=== PATIENT | male | born 1955 | race African-American/Black ===

== ENCOUNTER 2025-02-18 22:42 | Inpatient (IN) | payer OTHER ==
[~2025-02-18] VITALS: Ht 188 cm; Wt 100.0 kg
[2025-02-18 23:39] LABS: BASOPHILS % (AUTO) 0.2 % (0.0-2.0); EOSINOPHILS % (AUTO) 0.1 % (1.0-6.0); HEMATOCRIT 47.5 % (41-53); HEMOGLOBIN 15.5 g/dL (13.5-17.5); LYMPHOCYTES # (AUTO) 0.6 K/uL (1.0-4.8); LYMPHOCYTES % (AUTO) 3.5 % (22.0-44.0); MEAN CORPUSCULAR HEMOGLOBIN 28.8 pg (26.0-34.0); MEAN CORPUSCULAR HGB CONC 32.6 G/dL (31.0-37.0); MEAN CORPUSCULAR VOLUME 89 fL (80-100); MONOCYTES # (AUTO) 1.2 K/uL (0.1-1.0); MONOCYTES % (AUTO) 6.7 % (2.0-9.0); NEUTROPHILS # (AUTO) 16.2 K/uL (1.8-7.7); PLATELET COUNT (AUTO) 240 K/uL (150-450); RED BLOOD CELL COUNT(AUTO) 5.37 MIL/uL (4.50-5.90); RED CELL DISTRIBUTION WIDTH 14.3 % (11.5-14.5); WHITE BLOOD COUNT (AUTO) 18.1 K/uL (4.5-11.0)
[2025-02-18] MEDS: ACETAMINOPHEN 500 MG TABLET PO ONE (23:40)
[2025-02-18] MEDS: IBUPROFEN 400 MG TABLET PO ONE (23:41)
[2025-02-18 23:43] LABS: NEUTROPHILS % (AUTO) 89.5 % (40.0-70.0)
[2025-02-18 23:46] LABS: ANION GAP 9 mmol/L (8-16); CALCIUM, TOTAL 9.7 mg/dL (8.8-10.5); CARBON DIOXIDE 27 mmol/L (22-29); CHLORIDE 106 mmol/L (98-107); GLOMERULAR FILTR. RATE CALC > 60 mL/min (>60); GLUCOSE,RANDOM 109 mg/dL (70-110); SODIUM SERUM 142 mmol/L (136-145); UREA NITROGEN, BLOOD 12 mg/dL (7-18)
[2025-02-18 23:52] LABS: ERYTHROCYTE SEDIMENTATION RATE 4 MM/HR (0-20)
[2025-02-19] MEDS: LIDOCAINE 1% 10 ML VIAL IARTIC ONE (02:00)
[2025-02-19] MEDS: CeFAZolin 2 GM/DEXTROSE 50 ML IV ONE (06:59)
[2025-02-19] MEDS: VANCOMYCIN 1.75GM/WATER(PEG) 350 ML IV ONE (07:40)
[2025-02-19] MEDS ORDERED: BISACODYL 10 MG RECTAL RECTAL SUPPOSITORY PR PRN (13:00)
[2025-02-19] MEDS ORDERED: ONDANSETRON HCL 4 MG/2 ML VIAL IVP PRN (13:00)
[2025-02-19] MEDS ORDERED: ZOLPIDEM TARTRATE 5 MG TABLET PO PRN (13:00)
[2025-02-19] MEDS ORDERED: MORPHINE SULFATE 2 MG/ML SYRINGE IVP PRN (13:00)
[2025-02-19] MEDS: HEPARIN SODIUM,PORCINE 5,000 UNITS/ML VIAL SQ SCH (16:55)
[2025-02-19 17:38] VITALS: BP 101/75; PULSE 78; RESP 20; TEMP 99.9; O2SAT 96
[2025-02-19] MEDS: ACETAMINOPHEN 325 MG TABLET PO PRN (17:41)
[2025-02-19 20:00] VITALS: BP 104/63; PULSE 63; RESP 18; TEMP 98.7; O2SAT 97
[2025-02-19] MEDS ORDERED: SODIUM CHLORIDE 0.9% 500 ML IV ONE (20:02)
[2025-02-19] MEDS: DOCUSATE SODIUM 100 MG CAPSULE PO SCH (20:12)
[2025-02-19] MEDS: MAGNESIUM HYDROXIDE SUSPENSION 30 ML UDCUP PO PRN (20:12)
[2025-02-19] MEDS: VANCOMYCIN 1GM/WATER(PEG/NADA) 200 ML IV SCH (20:12)
[2025-02-19] MEDS: HYDROCODONE/ACETAMINOPHEN 5-325 MG TABLET PO PRN (20:17)
[2025-02-19] MEDS ORDERED: RIVA20TA PO (21:53)
[2025-02-19] MEDS ORDERED: EMPA10TA3 PO (21:53)
[2025-02-19] MEDS ORDERED: TRIA10.8 NASAL (21:53)
[2025-02-19] MEDS ORDERED: TIOT185 IH (21:53)
[2025-02-19] MEDS ORDERED: DICL100G60 TP (21:53)
[2025-02-19] MEDS ORDERED: SPIR-37 PO (21:53)
[2025-02-19] MEDS ORDERED: NAPH15DR8 OU (21:53)
[2025-02-19] MEDS ORDERED: LIDO1ADH83 TP (21:53)
[2025-02-19] MEDS ORDERED: IPRAHFA IH (21:53)
[2025-02-19] MEDS ORDERED: METO-325 PO (21:53)
[2025-02-19] MEDS ORDERED: CHOL25TA4 PO (21:53)
[2025-02-19] MEDS ORDERED: LACT10SO85 PO (21:53)
[2025-02-19] MEDS ORDERED: FURO20TA5 PO (21:53)
[2025-02-19] MEDS ORDERED: MOME13HF11 IH (21:53)
[2025-02-19] MEDS ORDERED: FINA-27 PO (21:53)
[2025-02-19] MEDS ORDERED: ATOR40TA28 PO (21:53)
[2025-02-19] MEDS ORDERED: ARIP300S IM (21:53)
[2025-02-19] MEDS ORDERED: AMIO200T74 PO (21:53)
[2025-02-19] MEDS ORDERED: TAMS0.4C94 PO (21:53)
[2025-02-19] MEDS ORDERED: LEVA15HF3 PO (21:53)
[2025-02-19] MEDS ORDERED: AMIODARONE HCL 200 MG TABLET PO SCH (22:15)
[2025-02-19] MEDS ORDERED: TRIAMCINOLONE ACET 55 MCG/SPRAY 16.9 ML NASAL SPRAY NASAL PRN (22:30)
[2025-02-19] MEDS ORDERED: LACTULOSE 20 GM/30 ML SOLUTION UDCUP PO PRN (22:30)
[2025-02-19] MEDS ORDERED: DICLOFENAC SODIUM 1% 100 GM GEL [2GM] TP PRN (22:30)
[2025-02-19] MEDS ORDERED: LEVALBUTEROL TARTRATE HFA 45 MCG/PUFF 15 GM INHALER IH PRN (22:30)
[2025-02-19] MEDS ORDERED: NAPHAZOLINE/PHENIR 0.025-0.3% 15 ML OPHTHALMIC SOLUTION OU PRN (22:45)
[2025-02-19] MEDS ORDERED: RIVAROXABAN 20 MG TABLET PO SCH (23:00)
[2025-02-20 03:48] VITALS: PULSE 88; RESP 19; TEMP 99; O2SAT 94
[2025-02-20 05:21] VITALS: BP 95/81
[2025-02-20 08:13] LABS: ANION GAP 9 mmol/L (8-16); CALCIUM, TOTAL 9.3 mg/dL (8.8-10.5); CARBON DIOXIDE 25 mmol/L (22-29); CHLORIDE 104 mmol/L (98-107); CREATININE 0.94 mg/dL (0.60-1.30); GLOMERULAR FILTR. RATE CALC > 60 mL/min (>60); GLUCOSE,RANDOM 68 mg/dL (70-110); POTASSIUM 4.7 mmol/L (3.5-5.1); SODIUM SERUM 138 mmol/L (136-145); UREA NITROGEN, BLOOD 10 mg/dL (7-18)
[2025-02-20] MEDS: TAMSULOSIN HCL 0.4 MG CAPSULE PO SCH (08:14)
[2025-02-20] MEDS: PANTOPRAZOLE SODIUM 40 MG DR TABLET PO SCH (08:15)
[2025-02-20] MEDS: AMIODARONE HCL 200 MG TABLET PO SCH (08:15)
[2025-02-20] MEDS: TIOTROPIUM BROMIDE 18 MCG/INH HANDIHALER [5] IH SCH (08:15)
[2025-02-20] MEDS: METOPROLOL SUCCINATE 50 MG ER TABLET PO SCH (08:16)
[2025-02-20] MEDS: FINASTERIDE 5 MG TABLET PO SCH (08:16)
[2025-02-20] MEDS: IPRATROPIUM BROMIDE HFA 17 MCG/PUFF 12.9 GM INHALER IH SCH (08:16)
[2025-02-20 08:53] VITALS: BP 102/80; PULSE 110; RESP 20; TEMP 99.3; O2SAT 97
[2025-02-20] MEDS ORDERED: LACTULOSE 20 GM/30 ML SOLUTION UDCUP PO PRN (09:45)
[2025-02-20] MEDS: CHOLECALCIFEROL (VIT D3) 1,000 UNITS [25 MCG] TABLET PO SCH (11:48)
[2025-02-20] MEDS: RIVAROXABAN 20 MG TABLET PO SCH (11:49)
[2025-02-20] MEDS: FUROSEMIDE 20 MG TABLET PO SCH (11:49)
[2025-02-20] MEDS: SPIRONOLACTONE 25 MG TABLET PO SCH (11:49)
[2025-02-20] MEDS: ATORVASTATIN CALCIUM 40 MG TABLET PO SCH (11:49)
[2025-02-20] MEDS: EMPAGLIFLOZIN 10 MG TABLET PO SCH (11:49)
[2025-02-20] MEDS ORDERED: ATORVASTATIN CALCIUM 40 MG TABLET PO SCH (12:00)
[2025-02-20] MEDS ORDERED: SPIRONOLACTONE 25 MG TABLET PO SCH (12:00)
[2025-02-20] MEDS ORDERED: EMPAGLIFLOZIN 10 MG TABLET PO SCH (12:00)
[2025-02-20] MEDS ORDERED: FUROSEMIDE 20 MG TABLET PO SCH (12:00)
[2025-02-20 20:02] VITALS: BP 108/84; PULSE 76; RESP 18; TEMP 98.4; O2SAT 100
[2025-02-20] MEDS ORDERED: IPRATROPIUM BROMIDE HFA 17 MCG/PUFF 12.9 GM INHALER IH SCH (21:00)
[2025-02-21 06:14] VITALS: BP 95/71; PULSE 91; RESP 18; TEMP 98.4; O2SAT 95
[2025-02-21 08:40] VITALS: BP 105/77; PULSE 103; RESP 18; TEMP 98.2; O2SAT 99
[2025-02-21] MEDS ORDERED: FINASTERIDE 5 MG TABLET PO SCH (09:00)
[2025-02-21] MEDS ORDERED: AMIODARONE HCL 200 MG TABLET PO SCH (09:00)
[2025-02-21] MEDS ORDERED: TAMSULOSIN HCL 0.4 MG CAPSULE PO SCH (09:00)
[2025-02-21 11:45] LABS: BASOPHILS % (AUTO) 0.2 % (0.0-2.0); HEMATOCRIT 43.8 % (41-53); HEMOGLOBIN 14.4 g/dL (13.5-17.5); LYMPHOCYTES # (AUTO) 0.9 K/uL (1.0-4.8); LYMPHOCYTES % (AUTO) 6.2 % (22.0-44.0); MEAN CORPUSCULAR HEMOGLOBIN 28.8 pg (26.0-34.0); MEAN CORPUSCULAR HGB CONC 32.9 G/dL (31.0-37.0); MEAN CORPUSCULAR VOLUME 88 fL (80-100); MONOCYTES % (AUTO) 6.7 % (2.0-9.0); NEUTROPHILS # (AUTO) 12.9 K/uL (1.8-7.7); PLATELET COUNT (AUTO) 240 K/uL (150-450); RED CELL DISTRIBUTION WIDTH 14.2 % (11.5-14.5); WHITE BLOOD COUNT (AUTO) 15.1 K/uL (4.5-11.0)
[2025-02-21 11:47] LABS: NEUTROPHILS % (AUTO) 85.9 % (40.0-70.0)
[2025-02-21 11:58] LABS: ANION GAP 9 mmol/L (8-16); CALCIUM, TOTAL 8.9 mg/dL (8.8-10.5); CARBON DIOXIDE 25 mmol/L (22-29); CHLORIDE 106 mmol/L (98-107); CREATININE 1.02 mg/dL (0.60-1.30); GLOMERULAR FILTR. RATE CALC > 60 mL/min (>60); GLUCOSE,RANDOM 113 mg/dL (70-110); POTASSIUM 4.3 mmol/L (3.5-5.1); SODIUM SERUM 140 mmol/L (136-145); UREA NITROGEN, BLOOD 12 mg/dL (7-18)
[2025-02-21 20:54] VITALS: BP 130/89; PULSE 104; RESP 19; TEMP 98.6; O2SAT 98
[2025-02-22 05:21] VITALS: BP 111/83; PULSE 97; RESP 19; TEMP 98.6; O2SAT 98
[2025-02-22 08:19] VITALS: BP 118/78; PULSE 99; RESP 18; TEMP 98.2; O2SAT 98
[2025-02-22 10:16] LABS: BASOPHILS % (AUTO) 0.5 % (0.0-2.0); EOSINOPHILS % (AUTO) 1.3 % (1.0-6.0); HEMATOCRIT 44.9 % (41-53); HEMOGLOBIN 14.7 g/dL (13.5-17.5); LYMPHOCYTES # (AUTO) 1.1 K/uL (1.0-4.8); LYMPHOCYTES % (AUTO) 8.9 % (22.0-44.0); MEAN CORPUSCULAR HEMOGLOBIN 28.7 pg (26.0-34.0); MEAN CORPUSCULAR HGB CONC 32.6 G/dL (31.0-37.0); MEAN CORPUSCULAR VOLUME 88 fL (80-100); NEUTROPHILS # (AUTO) 9.8 K/uL (1.8-7.7); NEUTROPHILS % (AUTO) 81.3 % (40.0-70.0); PLATELET COUNT (AUTO) 272 K/uL (150-450); RED BLOOD CELL COUNT(AUTO) 5.11 MIL/uL (4.50-5.90); RED CELL DISTRIBUTION WIDTH 14.2 % (11.5-14.5)
[2025-02-22 10:25] LABS: ANION GAP 10 mmol/L (8-16); CALCIUM, TOTAL 9.1 mg/dL (8.8-10.5); CARBON DIOXIDE 26 mmol/L (22-29); CHLORIDE 107 mmol/L (98-107); GLOMERULAR FILTR. RATE CALC > 60 mL/min (>60); GLUCOSE,RANDOM 94 mg/dL (70-110); POTASSIUM 4.4 mmol/L (3.5-5.1); SODIUM SERUM 143 mmol/L (136-145); UREA NITROGEN, BLOOD 13 mg/dL (7-18)
[2025-02-22] MEDS ORDERED: PANT-31 PO (12:49)
[2025-02-22] MEDS ORDERED: AMOX-457 PO (13:06)
[2025-02-22 16:00] VITALS: BP 101/75; PULSE 98; RESP 16; TEMP 97.7; O2SAT 99
== END 2025-02-22 21:05 | DRG 603 ==
LOC: EMS 22:42 → EDH 02-19 07:45 → 6S 02-19 13:45
PROVIDERS: ADMIT Internal Medicine; ATTEND Internal Medicine
DX: L03.115 Cellulitis of right lower limb (principal); I48.20 Chronic atrial fibrillation, unspecified; J45.909 Unspecified asthma, uncomplicated; I50.9 Heart failure, unspecified; M25.461 Effusion, right knee; I11.0 Hypertensive heart disease with heart failure; Z95.818 Presence of other cardiac implants and grafts; Z79.01 Long term (current) use of anticoagulants; Z79.899 Other long term (current) drug therapy
CPT/HCPCS: 73700; 80048; 80202; 84145; 85025; 85651; 86140; 87040; 99285; J0690; J1644; J3490; J3535; J7040